=== PATIENT | female | born 1975 | race Caucasian/White ===

== ENCOUNTER 2022-10-25 11:57 | Emergency (ER) | payer BC, SELFPAY ==
[2022-10-25] MEDS ORDERED: fentaNYL 50 mcg/mL 1 mL Vial ONE (13:00)
== END 2022-10-25 15:07 | disposition home or self-care (01) ==
LOC: CSHERS 11:57
DX: N83.202 Unspecified ovarian cyst, left side (principal); I10 Essential (primary) hypertension; F17.210 Nicotine dependence, cigarettes, uncomplicated
CPT/HCPCS: 76856; 96374; J3010

== ENCOUNTER 2022-10-26 11:14 | Emergency (ER) | payer BC, SELFPAY ==
[2022-10-26] MEDS ORDERED: Morphine 4 MG/ML VIAL ONE ×2 (12:01→13:04)
[2022-10-26] MEDS ORDERED: Ondansetron PF 4 MG/2 ML Vial ONE ×2 (12:01→13:45)
[2022-10-26 12:06] LABS: Hematocrit 33.9 % (34.9-44.5); Mean Corpuscular HGB CONC 32.4 g/dL (32.0-36.0); Mean Corpuscular Hemoglobin 25.2 pg (27.0-33.0); Mean Corpuscular Volume 77.8 fl (81.6-98.3); Mean Platelet Volume 11.4 fl (7.4-10.4); Platelet Count 281 10x3/uL (150-450); RBC Distribution Width 14.8 % (11.5-14.5); Red Blood Cell (RBC) Count 4.36 10x6/uL (3.90-5.03); White Blood Cell (WBC) Count 7.9 10x3/uL (3.5-10.5)
[2022-10-26 12:17] LABS: BHCG - Serum Negative (NEGATIVE); Pregs Control Background? CLEAR/WHITE (CLR/WHITE); Pregs Control Bar Appear? YES (CONTROL BAR)
[2022-10-26 12:19] LABS: ALT (SGPT) 13 U/L (8-55); AST (SGOT) 15 U/L (5-34); Albumin 3.7 g/dL (3.5-5.0); Alkaline Phosphatase 87 U/L (40-110); Anion Gap 13 mmol/L (10-20); BUN (Urea Nitrogen) 8 mg/dL (7.0-18.7); Bilirubin, Total 0.4 mg/dL (0.2-1.2); Calc. Creatinine Clearance 0 mL/min (70-130); Calcium 8.7 mg/dL (7.8-10.44); Carbon Dioxide 19 mmol/L (22-29); Chloride 111 mmol/L (98-107); Estimated GFR 99; Globulin 2.3 g/dL (2.4-3.5); Glucose 91 mg/dL (70-105); Potassium 3.8 mmol/L (3.5-5.1); Sodium 139 mmol/L (136-145)
[2022-10-26 12:30] LABS: MDiff Complete? YES
[2022-10-26 12:33] LABS: Eosinophils 2 % (0-10); Lymphocytes 21 % (21-51); Monocytes 4 % (0-10); Neutrophil 72 % (42-75)
[2022-10-26 12:34] LABS: Giant Platelets SLIGHT HPF (0-5); Large Platelets SLIGHT (None Seen); RBC Morph Comment Within Normal Limits
[2022-10-26 12:35] LABS: Platelet Adequacy Comment Appears Adequate; Platelet Clumps SLIGHT
[2022-10-26] MEDS ORDERED: Lactated Ringer's 1,000 ML IV SCH (13:00)
[2022-10-26] MEDS ORDERED: Promethazine HCl 12.5 MG in Sodium Chloride 0.9% 50 ML IVPB SCH (13:00)
[2022-10-26] MEDS ORDERED: Fentanyl 100 MCG/2 ML VIAL SLOW IVP SCH (13:00)
[2022-10-26] MEDS ORDERED: Ketorolac Tromethamine 30 MG/ML VIAL ONE ×2 (13:04→14:39)
[2022-10-26] MEDS ORDERED: EPINEPHrine 1 MG/ML VIAL ONE (13:32)
[2022-10-26] MEDS ORDERED: Bupivacaine PF 0.5% 30 ML VIAL ONE (13:33)
[2022-10-26] MEDS ORDERED: Fentanyl 250 MCG/5 ML VIAL ONE (13:44)
[2022-10-26] MEDS ORDERED: PROPOFOL 20 ML ONE (13:44)
[2022-10-26] MEDS ORDERED: Rocuronium Bromide 10 MG/ML (10ML VIAL) ONE (13:45)
[2022-10-26] MEDS ORDERED: Succinylcholine 200 MG/10 ml SYRINGE FS ONE (13:45)
[2022-10-26] MEDS ORDERED: Dexamethasone 20 MG/5 ML VIAL ONE (13:45)
[2022-10-26] MEDS ORDERED: Glycopyrrolate 0.2 MG/ML 5 ML SYRINGE ONE (14:09)
[2022-10-26] MEDS ORDERED: CEFAZOLIN 1 GM VIAL ONE (14:22)
[2022-10-26] MEDS ORDERED: HYDROcodone/Acetaminophen 5/325 mg Tablet PO PRN (15:16)
[2022-10-26] MEDS ORDERED: Ondansetron PF 4 MG/2 ML Vial IVP PRN (15:16)
[2022-10-26] MEDS ORDERED: fentaNYL 50 mcg/mL 1 mL Vial ONE (15:17)
[2022-10-26] MEDS ORDERED: Sodium Chloride 0.9% 1,000 ML IV SCH (15:30)
[2022-10-26] MEDS ORDERED: HYDROcodone/Acetaminophen 5/325 mg Tablet ONE (15:40)
[2022-10-26] MEDS ORDERED: Ketorolac Tromethamine 30 MG/ML VIAL IVP SCH (18:00)
== END 2022-10-26 13:53 | disposition admitted as inpatient to this hospital (09) ==
LOC: CSHERS 11:14
DX: N83.512 Torsion of left ovary and ovarian pedicle (principal); I10 Essential (primary) hypertension; F17.210 Nicotine dependence, cigarettes, uncomplicated
CPT/HCPCS: 36415; 80053; 84703; 85025; 86850; 86900; 86901; 96361; 96374; 96375; J0171; J0690; J1100; J1885; J2270; J2405; J2550; J2704; J3010; S0020